=== PATIENT | female | born 1955 | race Hispanic/Latino ===

== ENCOUNTER 2016-12-01 08:58 | Emergency (ER) | payer MEDICAID ==
[2016-12-01 09:08] VITALS: BP 138/71; PULSE 87; TEMP 97; O2SAT 98
[2016-12-01 09:09] VITALS: BMI 36.3
[2016-12-01] MEDS ORDERED: Silver Sulfadiazine 1% CREAM (50 gm) ONE (09:22)
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
[2016-12-01] MEDS ORDERED: Silver Sulfadiazine 1% Cream (20 gm) TOP STA (09:25)
== END 2016-12-01 09:37 | disposition home or self-care (01) ==
LOC: H.ER 08:58
DX: T23.241A Burn of second degree of multiple right fingers (nail), including thumb, initial encounter (principal)

== ENCOUNTER 2017-03-10 06:59 | Day surgery (SDC) | payer MEDICAID ==
[2017-03-03 09:47] VITALS: BMI 36.1
[2017-03-10] MEDS ORDERED: Lactated Ringer's 1,000 ML IV ONE (07:55)
[2017-03-10] MEDS ORDERED: Povidone Iodine 5% Opht SOLUTION ONE (08:46)
[2017-03-10] MEDS ORDERED: Lidocaine 2% w Epi 1:100,000 Inj IJ ONE (08:47)
[2017-03-10] MEDS ORDERED: Midazolam 2 MG/2 ML VIAL ONE (10:56)
[2017-03-10] MEDS ORDERED: Tetracaine 0.5% Ophth 2 ML BOTTLE OU ONE (11:20)
[2017-03-10] MEDS ORDERED: Lidocaine/Epi 1% 1:100000 20 ML IJ ONE (11:25)
[2017-03-10] MEDS ORDERED: BSS 15 ML SOL IR ONE (11:26)
[2017-03-10 12:32] VITALS: RESP 18
[2017-03-10 13:05] VITALS: PULSE 82
[2017-03-10 13:17] VITALS: BP 139/80; TEMP 98; O2SAT 98
--- NOTE | 2017-03-18 07:06 | OP ---
DATE OF PROCEDURE: 03/10/2017 SURGEON: TONY CHILDERS MD ANESTHESIOLOGIST: ASHLEE MARIE MD ANESTHETIC: LOCAL / IV SEDATION PREOPERATIVE DIAGNOSIS: PTERYGIUM. RIGHT EYE POSTOPERATIVE DIAGNOSIS: PTERYGIUM. RIGHT EYE OPERATION: LAMELLAR KERATOSCLERECTOMY WITH CONJUNCTIVOPLASTY AND INTRAOPERATIVE APPLICATION OF MITOMYCIN-C. PREPARATION AND PROCEDURE: After the patient was sedated intravenously, patient was prepped and draped in the usual manner for sterile ophthalmic surgery. Through microsurgical control, an adult wire lid speculum was placed within the lids of the operative eye. Under magnification, 1% Xylocaine with Epinephrine was injected within the substance of the conjunctiva nasally in order to anesthetize and to balloon the nasal conjunctiva posterior to the head of the pterygium. Using a #15 Bard-Perry blade, the head of the pterygium was carefully dissected in a lamellar fashion down to the base of the scar tissue at the level of the corneal stroma. After this was reflected toward the limbus, sharp-tipped Cecily scissors were utilized inferiorly and superiorly at the surgical sulcus in order to continue to dissect the head and body of the pterygium away from the limbus. The superficial conjunctiva posterior to the pterygium was incised in a curvilinear fashion from the inferior to the superior aspect. The head and body of the pterygium were sharply and bluntly dissected and then excised in total. Hemostasis was obtained using a bipolar cautery. A fresh #15 Asoy-Mjqymf-Cdyuj was utilized to smooth out the corneal and scleral surface to allow proper epithelialization. At this time, Mitomycin- C applied on Weck-maribell sponge and then applied to the surgical sulcus and left in place for exactly two minutes. At the termination of the two minutes, the area was copiously irrigated with balanced salt solution. After the area was examined for hemostasis, which was found to be satisfactory, the conjunctiva was reanastomosed utilizing interrupted #8-0 Vicryl sutures. At the termination , the eye was irrigated and the conjunctiva was closed and a conjunctivoplasty was performed with interrupted #8-0 Vicryl suture. TobraDex drops were applied to the eye. POSTOPERATIVE CONDITION: The patient was brought to the post-anesthesia recovery with stable vital signs. TONY CHILDERS MD [facility]
== END 2017-03-10 13:38 | disposition home or self-care (01) ==
LOC: H.OPSURG 06:59
PROVIDERS: ATTEND Ophthalmology
DX: H11.002 Unspecified pterygium of left eye (principal)

== ENCOUNTER 2017-11-23 07:09 | Emergency (ER) | payer MEDICAID ==
[2017-11-23 07:10] VITALS: BMI 36.1
[2017-11-23 07:31] VITALS: RESP 20
[2017-11-23 07:45] VITALS: O2SAT 98
--- NOTE | 2017-11-23 07:45 | ED PDOC ---
History of Present Illness History of Present Illness: 62 year old female presents to the emergency department with a complaint of flu- like symptoms including productive cough with white phlegm, nasal congestion, runny nose, back pain and headache ongoing for 3 days. She also reported having a fever on first day of onset but it has since resolved. Denied any vomiting or diarrhea. Patient reported taking Ibuprofen last night for relief. PMD: none provided HPI: Influenza Time Seen by Provider: 11/23/17 07:14 Chief Complaint: Cough, Cold, Congestion Chief Complaint (Provider): Cough, Cold, Congestion History Per: Patient Exam Limitations: no limitations Onset/Duration Of Symptoms: Days (x3) Symptoms include: fever, headache, cough, nasal congestion Sick Contacts (Context): Family Member(s) (grandson) Past Medical History Reviewed: Historical Data, Nursing Documentation, Vital Signs Vital Signs: Last Vital Signs Temp 97.7 F 11/23/17 07:26 Pulse 90 11/23/17 07:26 Resp 20 11/23/17 07:26 BP 133/74 11/23/17 07:26 Pulse Ox 981 H 11/23/17 07:26 - Medical History PMH: No Chronic Diseases Denies: Chronic Kidney Disease - Surgical History Surgical History: Denies: Appendectomy, CABG, Carotid Endarterectomy, Cholecystectomy, Coronary Stent, Endoscopy, Pacemaker, Tonsillectomy Other surgeries: bunion; tubal ligation; breast reduction; cataract - Family History Family History: States: Unknown Family Hx - Social History Current smoker - smoking cessation education provided: No Ex-Smoker (has not smoked in the last 12 months): Yes (quit 40+ years ago) Alcohol: Occasional Drugs: Denies - Immunization History Hx Influenza Vaccination: Yes - Home Medications Home Medications: Ambulatory Orders Medication Instructions Recorded Silver Sulfadiazine 1% 50 gm 1 ea EXT DAILY #1 jar 12/01/16 [Silvadene 1% 50 gm] Albuterol HFA [Ventolin HFA 90 1 - 2 puff IH Q4H PRN #1 bottle 11/23/17 mcg/actuation (8 g)] - Allergies Allergies/Adverse Reactions: Allergies Allergy/AdvReac Type Severity Reaction Status Date / Time No Known Allergies Allergy Verified 10/17/16 09:25 Review of Systems ROS Statement: Except As Marked, All Systems Reviewed And Found Negative Constitutional: Positive for: Fever (resolved) ENT: Positive for: Nose Discharge, Nose Congestion Respiratory: Positive for: Cough, Sputum (white) Gastrointestinal: Negative for: Vomiting, Diarrhea Musculoskeletal: Positive for: Back Pain Neurological: Positive for: Headache Physical Exam - Reviewed Nursing Documentation Reviewed: Yes Vital Signs Reviewed: Yes - Physical Exam Appears: Positive for: Non-toxic, No Acute Distress Head Exam: Positive for: ATRAUMATIC, NORMAL INSPECTION, NORMOCEPHALIC Skin: Positive for: Normal Color Eye Exam: Positive for: Normal appearance ENT: Positive for: Normal ENT Inspection Neck: Positive for: Normal Cardiovascular/Chest: Positive for: Regular Rate, Rhythm, Chest Non Tender Respiratory: Positive for: Normal Breath Sounds. Negative for: Decreased Breath Sounds, Wheezing, Respiratory Distress Gastrointestinal/Abdominal: Positive for: Normal Exam, Soft. Negative for: Tenderness Extremity: Positive for: Normal ROM (upper/lower) Neurologic/Psych: Positive for: Alert (x3), Oriented Medical Decision Making Medical Decision Making: Initial Impression: Viral illness rule out flu and strep Initial Plan: * Albuterol 2.5mg INH * Influenza A B * Rapid strep * Peak flow pre/post tx * Throat culture ____ Time: 08 --Rapid strep: negative --Influenza: negative Time: 931 --Upon provider reevaluation, patient is feeling better, medically stable and requires no further treatment in the ED at this time. Provider discussed with patient the ineffectiveness of Tamiflu due to duration of symptoms and negative flu/strep tests. Patient expressed understanding and advised treatment with symptomatic care. Patient will be discharged home with Rx for Ventolin HFA. Counseling was provided and all questions were answered regarding diagnosis and need for follow up with PMD. There is agreement to discharge plan. Return if symptoms persist or worsen. Clinical Impression: Common cold Scribe Attestation: Documented by Evelyn Mcdaniels, acting as a scribe for Ignacio Willard MD. Provider Scribe Attestation: All medical record entries made by the Scribe were at my direction and personally dictated by me. I have reviewed the chart and agree that the record accurately reflects my personal performance of the history, physical exam, medical decision making, and the department course for this patient. I have also personally directed, reviewed, and agree with the discharge instructions and disposition. - ECG O2 Sat by Pulse Oximetry: 98 (RA) Pulse Ox Interpretation: Normal Disposition - Clinical Impression Clinical Impression: Common cold - Patient ED Disposition Is Patient to be Admitted: No Counseled Patient/Family Regarding: Studies Performed, Diagnosis, Need For Followup - Disposition Referrals: [facility] [Outside] [facility] [Outside] Disposition: Routine/Home Disposition Time: 09:20 Condition: IMPROVED Additional Instructions: follow up with your primary doctor in 2 days for reevaluation return to the ED with any worsening or concerning symptoms Prescriptions: Albuterol HFA [Ventolin HFA 90 mcg/actuation (8 g)] 1 - 2 puff IH Q4H PRN #1 bottle PRN Reason: Wheezing Instructions: Viral Upper Respiratory Infection, Adult (DC) Forms: [employer] (Hungarian)
[2017-11-23] MEDS ORDERED: Albuterol 0.083% Inhal Sol (2.5 mg/3 mL) UD INH ONE (07:48)
[2017-11-23 09:45] VITALS: BP 140/84; PULSE 84; TEMP 98.3
== END 2017-11-23 09:45 | disposition home or self-care (01) ==
LOC: H.ER 07:09
DX: J00 Acute nasopharyngitis [common cold] (principal)

== ENCOUNTER 2018-01-06 10:29 | Emergency (ER) | payer MEDICAID ==
[2018-01-06 10:40] VITALS: BMI 26.6
[2018-01-06 10:41] VITALS: RESP 17
[2018-01-06 10:51] VITALS: BP 103/58; PULSE 74; TEMP 98; O2SAT 96
--- NOTE | 2018-01-06 11:28 | ED PDOC ---
Lower Extremity Pain/Injury Time Seen by Provider: 01/06/18 11:27 Chief Complaint (Nursing): Lower Extremity Problem/Injury Chief Complaint (Provider): ankle injury History Per: Patient (62 y/o female here for evaluation of ankle injury that occurred last night. Notes she twisted while walking down stairs. Denies any head injury. Took motrin 800 mg yesterday. Able to ambulate but painful.) Past Medical History Reviewed: Historical Data, Nursing Documentation, Vital Signs Vital Signs: Last Vital Signs Temp 98 F 01/06/18 10:40 Pulse 74 01/06/18 10:40 Resp 17 01/06/18 10:40 BP 103/58 L 01/06/18 10:40 Pulse Ox 96 01/06/18 10:40 - Medical History PMH: Hyperlipidemia Denies: Chronic Kidney Disease - Surgical History Surgical History: Denies: Appendectomy, CABG, Carotid Endarterectomy, Cholecystectomy, Coronary Stent, Endoscopy, Pacemaker, Tonsillectomy - Family History Family History: States: Unknown Family Hx - Immunization History Hx Influenza Vaccination: Yes - Home Medications Home Medications: Ambulatory Orders Medication Instructions Recorded Silver Sulfadiazine 1% 50 gm 1 ea EXT DAILY #1 jar 12/01/16 [Silvadene 1% 50 gm] Albuterol HFA [Ventolin HFA 90 1 - 2 puff IH Q4H PRN #1 bottle 11/23/17 mcg/actuation (8 g)] Ibuprofen [Motrin] 600 mg PO Q8 PRN #21 tab 01/06/18 - Allergies Allergies/Adverse Reactions: Allergies Allergy/AdvReac Type Severity Reaction Status Date / Time No Known Allergies Allergy Verified 10/17/16 09:25 Review of Systems ROS Statement: Except As Marked, All Systems Reviewed And Found Negative Musculoskeletal: Positive for: Other (ankle injury) Physical Exam - Reviewed Nursing Documentation Reviewed: Yes Vital Signs Reviewed: Yes - Physical Exam Appears: Positive for: Well, Non-toxic, No Acute Distress Head Exam: Positive for: ATRAUMATIC, NORMAL INSPECTION, NORMOCEPHALIC Skin: Positive for: Normal Color, Warm, DRY Eye Exam: Positive for: EOMI, Normal appearance, PERRL ENT: Positive for: Normal ENT Inspection Neck: Positive for: Normal, Painless ROM Cardiovascular/Chest: Positive for: Regular Rate, Rhythm Respiratory: Positive for: CNT, Normal Breath Sounds Gastrointestinal/Abdominal: Positive for: Normal Exam, Soft Back: Positive for: Normal Inspection Extremity: Positive for: Normal ROM, Tenderness (lateral malleoulus), Swelling Neurologic/Psych: Positive for: Alert, Oriented - ECG O2 Sat by Pulse Oximetry: 96 - Progress ED Course And Treament: motrin 600mg Xry of ankle: no acute fx Placed in air cast and crutch instructions given. Disposition - Clinical Impression Clinical Impression: Ankle sprain - Patient ED Disposition Is Patient to be Admitted: No - Disposition Referrals: [facility] [Outside] Disposition: Routine/Home Disposition Time: 12:52 Condition: FAIR Prescriptions: Ibuprofen [Motrin] 600 mg PO Q8 PRN #21 tab PRN Reason: Pain, Moderate (4-7) Instructions: Sprain (DC), Ankle Sprain (DC) Forms: [facility] (Romanian), [facility] ED School/Work Excuse
--- NOTE | 2018-01-06 13:30 | RAD ---
PROCEDURE: Right Ankle Radiographs. HISTORY: Ankle injury COMPARISON: None FINDINGS: BONES: Bone alignment and mineralization are normal. There is no acute displaced fracture or bone destruction. JOINTS: Normal. No osteoarthritis. Ankle mortise maintained. Talar dome intact SOFT TISSUES: There is moderate lateral soft tissue swelling. OTHER FINDINGS: None. IMPRESSION: No acute fracture or dislocation. Moderate lateral soft tissue swelling.
== END 2018-01-06 13:16 | disposition home or self-care (01) ==
LOC: H.ER 10:29
DX: S93.401A Sprain of unspecified ligament of right ankle, initial encounter (principal); X50.9XXA Other and unspecified overexertion or strenuous movements or postures, initial encounter; Y92.89 Other specified places as the place of occurrence of the external cause; E78.5 Hyperlipidemia, unspecified

== ENCOUNTER 2018-12-21 18:50 | Emergency (ER) | payer MEDICAID ==
[2018-12-21 18:50] VITALS: BMI 26.6
[2018-12-21 19:45] VITALS: BP 132/74; PULSE 81; RESP 20; TEMP 98.2; O2SAT 99
[2018-12-21] MEDS ORDERED: cefTRIAXone (Rocephin) 250 mg Inj IM STA (19:54)
[2018-12-21] MEDS ORDERED: cefTRIAXone (Rocephin) 250 mg Inj ONE (20:03)
--- NOTE | 2018-12-21 20:27 | ED PDOC ---
HPI: Female Pain Time Seen by Provider: 12/21/18 19:47 Chief Complaint (Nursing): Female Genitourinary Chief Complaint (Provider): Frequency, Dysuria History Per: Patient History/Exam Limitations: no limitations Onset/Duration Of Symptoms: Days (x1) Current Symptoms Are (Timing): Still Present Additional Complaint(s): 63 year old female presents to the ED for evaluation of urinary frequency, dysuria, and blood when wiping one time for the past day. She notes she has had these symptoms before, so she would like to get it treated and checked out before it gets worse. Patient does note she is sexually active with no condom use, and would like to get checked and treated for STDs, however denies any abnormal vaginal discharge or odor, abdominal pain, nausea, and vomiting. She does have chronic back pain, but states it is not any worse than usual and denies new injury or trauma. Additionally, patient reports a rash to her chest for the past three days, but notes she has already been seen at the clinic for it and has an appointment with her PMD, so she is not concerned as it is being treated. Currently taking Benadryl to relieve the itchiness, but it makes her drowsy. Otherwise, denies any new exposures such as medications, detergents, perfumes, and foods. PMD: none provided Past Medical History Reviewed: Historical Data, Nursing Documentation, Vital Signs Vital Signs: Last Vital Signs Temp 98.2 F 12/21/18 19:43 Pulse 81 12/21/18 19:43 Resp 20 12/21/18 19:43 BP 132/74 12/21/18 19:43 Pulse Ox 99 12/21/18 19:43 - Medical History PMH: Hyperlipidemia Denies: Chronic Kidney Disease - Surgical History Surgical History: No Surg Hx Denies: Appendectomy, CABG, Carotid Endarterectomy, Cholecystectomy, Coronary Stent, Endoscopy, Pacemaker, Tonsillectomy - Family History Family History: States: Unknown Family Hx - Social History Current smoker - smoking cessation education provided: No Alcohol: Social Drugs: Denies - Immunization History Hx Influenza Vaccination: Yes - Home Medications Home Medications: Ambulatory Orders Medication Instructions Recorded Silver Sulfadiazine 1% 50 gm 1 ea EXT DAILY #1 jar 12/01/16 [Silvadene 1% 50 gm] Albuterol HFA [Ventolin HFA 90 1 - 2 puff IH Q4H PRN #1 bottle 11/23/17 mcg/actuation (8 g)] Ibuprofen [Motrin] 600 mg PO Q8 PRN #21 tab 01/06/18 Cephalexin [Keflex] 500 mg PO TID 7 Days #21 capsule 12/21/18 Phenazopyridine HCl [Pyridium] 200 mg PO TID #6 tablet 12/21/18 - Allergies Allergies/Adverse Reactions: Allergies Allergy/AdvReac Type Severity Reaction Status Date / Time No Known Allergies Allergy Verified 12/21/18 19:43 Review of Systems ROS Statement: Except As Marked, All Systems Reviewed And Found Negative Gastrointestinal: Negative for: Nausea, Vomiting, Abdominal Pain Genitourinary Female: Positive for: Dysuria, Frequency. Negative for: Vaginal Discharge (or odors) Musculoskeletal: Positive for: Back Pain (but chronic, not new) Skin: Positive for: Rash (to chest) Physical Exam - Reviewed Nursing Documentation Reviewed: Yes Vital Signs Reviewed: Yes - Physical Exam Comments: GENERAL APPEARANCE: Patient is awake, alert, oriented x 3, in no acute distress. Overweight. SKIN: Warm, dry; (+) diffusely erythematous rash to upper chest with blanching, (-) signs of infection, (-) vesicles. EYES: (-) conjunctival pallor, (-) scleral icterus. ENMT: Mucous membranes moist. Airway: patent. No lip or tongue swelling. NECK: (-) tenderness, (-) stiffness, (-) lymphadenopathy. CHEST AND RESPIRATORY: (-) rales, (-) rhonchi, (-) wheezes; breath sounds equal bilaterally. HEART AND CARDIOVASCULAR: (-) irregularity; (-) murmur, (-) gallop. ABDOMEN AND GI: (-) distention, (-) tenderness, (-) guarding, (-) rebound, (-) palpable masses, (-) CVA tenderness bilaterally. EXTREMITIES: (-) deformity, (-) edema, (+) distal pulses. NEURO AND PSYCH: Mental status as above; (-) focal findings. - ECG O2 Sat by Pulse Oximetry: 99 (RA) Pulse Ox Interpretation: Normal Medical Decision Making Medical Decision Making: Time: 1953 Initial Impression: urinary frequency, dysuria Initial Plan: --Rocephin 250mg IM --Zithromax 1000mg PO --Urine culture --Chlamydia/GC RNA, TMA --Urine culture --Urinalysis 2044 UA showing positive nitrates and UTI, will treat with Keflex and pyridium. Discussed results, diagnosis, treatment, return precautions and f/u with pt who is understanding, in agreement and stable for dc Scribe Attestation: Documented by Rocio Christie acting as a scribe for Delbert Barrett PA-C. Provider Scribe Attestation: All medical record entries made by the Scribe were at my direction and personally dictated by me. I have reviewed the chart and agree that the record accurately reflects my personal performance of the history, physical exam, medical decision making, and the department course for this patient. I have also personally directed, reviewed, and agree with the discharge instructions and disposition. Disposition - Clinical Impression Clinical Impression: Urinary tract infection - Patient ED Disposition Is Patient to be Admitted: No Counseled Patient/Family Regarding: Studies Performed, Diagnosis, Need For Followup, Rx Given - Disposition Referrals: your, doctor [Other] [facility] [place] [Outside] Disposition: Routine/Home Disposition Time: 21:00 Condition: STABLE Additional Instructions: Return to ED for new or worsening symptoms, fever >100.4, abdominal pain, new back pain, vomiting. Follow up with your doctor. Take medications as prescribed. Drink plenty of water Thank you for letting us take care of you today. You were treated for urinary tract infection. The emergency medical care you received today was directed at your acute symptoms. If you were prescribed any medication, please fill it and take as directed. It may take several days for your symptoms to resolve. Return to the Emergency Department if your symptoms worsen, do not improve, or if you have any other problems. Please contact your doctor in 2 days for re-evaluation and follow up / or call one of the physicians/clinics you have been referred to that are listed on the Patient Visit Information form that is included in your discharge packet. Bring any paperwork you were given at discharge with you along with any medications you are taking to your follow up visit. Our treatment cannot replace ongoing medical care by a primary care provider (PCP) outside of the emergency department. Prescriptions: Cephalexin [Keflex] 500 mg PO TID 7 Days #21 capsule Phenazopyridine HCl [Pyridium] 200 mg PO TID #6 tablet Instructions: Urinary Tract Infections in Adults Forms: [employer] (Surinamese) Print Language: ICELANDIC - POA Present On Arrival: None
[2018-12-21 20:31] LABS: SQUAMOUS EPITHIAL 2 /hpf (0-5); URINE BACTERIA OCC (<OCC); URINE BILIRUBIN NEGATIVE (NEGATIVE); URINE BLOOD MODERATE (NEGATIVE); URINE CLARITY CLOUDY (Clear); URINE COLOR YELLOW (YELLOW); URINE GLUCOSE (UA) NEG (NEGATIVE); URINE LEUKOCYTE ESTERASE LARGE Leu/uL (Negative); URINE PROTEIN 30 mg/dL (NEGATIVE)
== END 2018-12-21 21:12 | disposition home or self-care (01) ==
LOC: H.ER 18:50
DX: N39.0 Urinary tract infection, site not specified (principal); E78.5 Hyperlipidemia, unspecified; G89.29 Other chronic pain
CPT/HCPCS: 81003; 87086; 87181; 87491; 87591; 96372; 99283; J0696

== ENCOUNTER 2019-01-16 15:25 | Emergency (ER) | payer MEDICAID ==
[2019-01-16 15:25] VITALS: BMI 26.6
[2019-01-16] MEDS ORDERED: DiphenhydrAMINE 50 mg/ml Inj IVP STA (17:05)
--- NOTE | 2019-01-16 17:09 | ED PDOC ---
HPI: General Adult Time Seen by Provider: 01/16/19 16:09 Chief Complaint (Nursing): Dizziness/Lightheaded Chief Complaint (Provider): dizziness, rash History Per: Patient History/Exam Limitations: no limitations Additional Complaint(s): 63 y/o Female with hx of HL who presents for evaluation of dizziness and rash. Pt states that she had a rash last week and was prescribed an oral steroid with resolution of rash. This morning she noticed that the rash had returned on her neck and around her eyes. It is itchy. Denies using new medications, lotions, eating new foods today. She has not taken anything for it. This afternoon, she was sitting down at about 3pm when she suddenly had an episode of dizziness that lasted about 45 minutes and resolved by the time that she arrived. She denies having speech difficulty, visual blurriness, gait disturbance, palpitations, C/P or SOB at the time. States that dizziness persisted despite position (sitting, standing or walking). PMD: Dr. Spivey Past Medical History Reviewed: Historical Data, Nursing Documentation, Vital Signs Vital Signs: Last Vital Signs Temp 98.0 F 01/16/19 15:36 Pulse 80 01/16/19 15:36 Resp 16 01/16/19 15:36 BP 118/71 01/16/19 15:36 Pulse Ox 100 01/16/19 15:36 - Medical History PMH: Anemia, Hyperlipidemia Denies: Chronic Kidney Disease - Surgical History Surgical History: Denies: Appendectomy, CABG, Carotid Endarterectomy, Cholecystectomy, Coronary Stent, Endoscopy, Pacemaker, Tonsillectomy - Family History Family History: States: Unknown Family Hx - Immunization History Hx Influenza Vaccination: Yes - Home Medications Home Medications: Ambulatory Orders Medication Instructions Recorded Silver Sulfadiazine 1% 50 gm 1 ea EXT DAILY #1 jar 12/01/16 [Silvadene 1% 50 gm] Albuterol HFA [Ventolin HFA 90 1 - 2 puff IH Q4H PRN #1 bottle 11/23/17 mcg/actuation (8 g)] Ibuprofen [Motrin] 600 mg PO Q8 PRN #21 tab 01/06/18 Cephalexin [Keflex] 500 mg PO TID 7 Days #21 capsule 12/21/18 Phenazopyridine HCl [Pyridium] 200 mg PO TID #6 tablet 12/21/18 Aspirin [Adult Aspirin Regimen] 81 mg PO DAILY 7 Days tablet. 01/16/19 DiphenhydrAMINE [Benadryl] 25 mg PO Q6 PRN 5 Days cap 01/16/19 Famotidine [Pepcid] 20 mg PO BID 5 Days tab 01/16/19 Prednisone 50 mg PO DAILY #4 tablet 01/16/19 - Allergies Allergies/Adverse Reactions: Allergies Allergy/AdvReac Type Severity Reaction Status Date / Time No Known Allergies Allergy Verified 12/21/18 19:43 Review of Systems Constitutional: Negative for: Fever, Chills Cardiovascular: Negative for: Chest Pain, Palpitations Respiratory: Negative for: Shortness of Breath Neurological: Positive for: Dizziness. Negative for: Weakness, Numbness, Change in Speech, Confusion, Altered Mental Status, Headache Physical Exam - Reviewed Nursing Documentation Reviewed: Yes Vital Signs Reviewed: Yes - Physical Exam Appears: Positive for: Non-toxic, No Acute Distress Skin: Positive for: Rash (urticarial erythematous rash around neck and B/L eyes. ) Eye Exam: Positive for: EOMI, PERRL ENT: Positive for: Other (no pharyngeal swelling). Negative for: Pharyngeal Erythema Cardiovascular/Chest: Positive for: Regular Rate, Rhythm Respiratory: Positive for: Normal Breath Sounds Gastrointestinal/Abdominal: Positive for: Normal Exam Neurological/Psych: Positive for: Awake, Alert, Oriented, Gait (steady), Cerebellar Tests (able to perform heel to toe, alternating finger to nose, no pronator drift. ), superintendent operating II-XII (no tongue deviation, able to puff cheeks symmetrically, equal brow furrow). Negative for: Lethargic, Motor/Sensory Deficits (sensation to light touch intact in B/L upper and lower extremities, normal extinction), Facial Droop - Laboratory Results Result Diagrams: 01/16/19 16:28 01/16/19 16:28 - ECG O2 Sat by Pulse Oximetry: 100 Medical Decision Making Medical Decision Making: CBC, CMP EKG HEAD CT [facility] Tele Prednisone 50mg PO x 1 Benadryl 50mg IV x 1 Re-evaluation EKG: sinus with sinus arrhythmia, HR 74, no ischemic change. Orthostatics: lying BP: 120/77 HR 52; sitting 139/91 HR 66; standing: BP: 130/86 HR 66 Re-evaluated: resting comfortably. States that itching has improved. rash on neck had improved with only minimal erythema noted as well as improvement around eyes. Head CT: FINDINGS: HEMORRHAGE: No acute parenchymal, subarachnoid or extra-axial hemorrhage. BRAIN: Move minimal chronic periventricular white matter ischemic changes seen extending peripherally into the deep white matter both cerebral hemispheres. C hronic appearing infarct left frontal lobe new since prior exam.. VENTRICLES: No obstructive CALVARIUM: Calvarium intact PARANASAL SINUSES: Frontal sinuses remain underpneumatized/hypoplastic. No significant inflammatory changes. 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 MASTOID AIR CELLS: Unremarkable as visualized. No inflammatory changes. OTHER FINDINGS: Changes of bilateral cataract surgery noted. IMPRESSION: No acute intracranial hemorrhage. 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 Minor chronic periventricular white matter ischemic changes. Case reviewed with Dr. Spivey re: admission to [facility] for observation but states that patient could be evaluated as an outpatient. Prefers discussion with neurology. Case reviewed with Dr. Mendes of neurology who agrees that CT scan findings are likely unrelated to dizziness and that dizziness can be worked up as an outpatient. Patient feeling well and follow up as outpatient discussed. Patient in agreement with discharge with close follow up and strict return instructions given. Disposition - Clinical Impression Clinical Impression: Dizziness Counseled Patient/Family Regarding: Studies Performed, Diagnosis, Need For Followup, Rx Given - Disposition Referrals: Carroll Spivey MD [Staff Provider] - Valeri Mendes MD [Medical Doctor] - Disposition: Routine/Home Disposition Time: 21:00 Condition: IMPROVED Additional Instructions: Follow up with Dr. Mendes or neurologist within the next couple of days for further evaluation of dizziness and infarct noted on CAT scan. Follow up with Dr. Spivey or soccer commentator re: recurrent allergic rash. Take full course of Prednisone and Pepcid. Take Benadryl as needed. Return to ER if your symptoms return or worsen. Prescriptions: Aspirin [Adult Aspirin Regimen] 81 mg PO DAILY 7 Days tablet. DiphenhydrAMINE [Benadryl] 25 mg PO Q6 PRN 5 Days cap PRN Reason: Itching / Pruritus Famotidine [Pepcid] 20 mg PO BID 5 Days tab Prednisone 50 mg PO DAILY #4 tablet Instructions: Dizziness, Nonvertigo, (DC) Forms: [employer] (Slovak) Print Language: INDONESIAN
[2019-01-16] MEDS ORDERED: DiphenhydrAMINE 50 mg/ml Inj ONE (17:19)
[2019-01-16 17:27] LABS: BASO % 0.4 % (0.0-2.0); EOS # 0.2 K/uL (0.0-0.7); EOS % 3.7 % (0.0-4.0); HEMOGLOBIN 12.4 g/dL (12.0-16.0); LYMPH # 1.6 K/uL (1.0-4.3); LYMPH % 30.4 % (20.0-40.0); MEAN CELL VOLUME 91.9 fl (81.0-99.0); MEAN CORPUSCULAR HEMOGLOBIN 29.9 pg (27.0-31.0); MEAN CORPUSCULAR HGB CONC 32.5 g/dL (33.0-37.0); MEAN PLATELET VOLUME 9.3 fl (7.2-11.7); MONO # 0.3 K/uL (0.0-0.8); MONO % 6.1 % (0.0-10.0); NEUT # 3.2 K/uL (1.8-7.0); NEUT % 59.4 % (50.0-75.0); NRBC % 0.1 % (0.0-0.0); RBC 4.16 Mil/uL (3.80-5.20); RED CELL DISTRIBUTION WIDTH 15.5 % (11.5-14.5); WHITE BLOOD COUNT 5.4 K/uL (4.8-10.8)
[2019-01-16 17:38] LABS: ALB/GLOB RATIO 1.4 (1.0-2.1); ALBUMIN 4.3 g/dL (3.5-5.0); ALT/SGPT 26 U/L (9-52); AST/SGOT 30 U/L (14-36); BLOOD UREA NITROGEN 17 mg/dl (7-17); CALCIUM 9.8 mg/dL (8.4-10.2); GFR NON-AFRICAN AMERICAN > 60
--- NOTE | 2019-01-16 17:45 | CT ---
Date of service: 01/16/2019 PROCEDURE: CT HEAD WITHOUT CONTRAST. HISTORY: Dizziness COMPARISON: Comparison made with prior study dated 02/25/2014. TECHNIQUE: Axial computed tomography images were obtained through the head/brain without intravenous contrast. Radiation dose: Total exam DLP = 870.47 mGy-cm. This CT exam was performed using one or more of the following dose reduction techniques: Automated exposure control, adjustment of the mA and/or kV according to patient size, and/or use of iterative reconstruction technique. FINDINGS: HEMORRHAGE: No acute parenchymal, subarachnoid or extra-axial hemorrhage. BRAIN: Move minimal chronic periventricular white matter ischemic changes seen extending peripherally into the deep white matter both cerebral hemispheres. Chronic appearing infarct left frontal lobe new since prior exam.. VENTRICLES: No obstructive CALVARIUM: Calvarium intact PARANASAL SINUSES: Frontal sinuses remain underpneumatized/hypoplastic. No significant inflammatory changes. 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 MASTOID AIR CELLS: Unremarkable as visualized. No inflammatory changes. OTHER FINDINGS: Changes of bilateral cataract surgery noted. IMPRESSION: No acute intracranial hemorrhage. 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 Minor chronic periventricular white matter ischemic changes.
[2019-01-16 18:12] LABS: BARBITURATES, UR NEGATIVE (NEGATIVE); BENZODIAZEPINES, UR NEGATIVE (NEGATIVE); OPIATES, UR NEGATIVE (NEGATIVE); PHENCYCLIDINE, UR NEGATIVE (NEGATIVE)
[2019-01-16 21:36] VITALS: BP 129/76; PULSE 59; RESP 18; TEMP 98.6; O2SAT 98
--- NOTE | 2019-01-17 10:25 | CARD ---
APPROVED REPORT Date of service: 01/16/2019 EKG Measurement Heart [id number] <Conclusion> Sinus rhythm with marked sinus arrhythmia Otherwise normal ECG
== END 2019-01-16 21:19 | disposition home or self-care (01) ==
LOC: H.ER 15:25 → H.ERHOLD 20:13 → UNDOADMOB 20:13 → H.ER 21:19
DX: R42 Dizziness and giddiness (principal); R21 Rash and other nonspecific skin eruption; E78.5 Hyperlipidemia, unspecified; Z79.82 Long term (current) use of aspirin
CPT/HCPCS: 70450; 80053; 80324; 80345; 80346; 80349; 80353; 80358; 80361; 83992; 84484; 85025; 93005; 96374; 99284; J1200

== ENCOUNTER 2019-02-13 18:52 | Emergency (ER) | payer MEDICAID ==
[2019-02-13 19:05] VITALS: RESP 18; O2SAT 96
[2019-02-13 19:06] VITALS: BMI 37.2
--- NOTE | 2019-02-13 21:27 | ED PDOC ---
Lower Extremity Pain/Injury Time Seen by Provider: 02/13/19 19:13 Chief Complaint (Nursing): Lower Extremity Problem/Injury Chief Complaint (Provider): Lower Extremity Problem/Injury History Per: Patient History/Exam Limitations: no limitations Onset/Duration Of Symptoms: Days Current Symptoms Are (Timing): Still Present Additional Complaint(s): 63 y/o female with a PMHx of hyperlipidemia presents to the ED for evaluation of left leg pain for the past week. Patient reports having pain and swelling below the left knee one week ago and has since moved down the left calf. Patient notes she feels as if her leg is very heavy. Patient notes pain radiates to the back of the left thigh. Otherwise, patient denies fall, trauma, fever, chills and shortness of breath. Patient reports of taking diclofenac cream by her PMD with no relief of pain. Patient last took oral Ibuprofen four days ago. Patient additionally denies recent long distance travel, history of DVT, PE, clotting disorders, hormone replacement therapy and malignancy PMD: Nito Osuna Past Medical History Reviewed: Historical Data, Nursing Documentation, Vital Signs Vital Signs: Last Vital Signs Temp 98.5 F 02/13/19 19:04 Pulse 86 02/13/19 19:04 Resp 18 02/13/19 19:04 BP 125/81 02/13/19 19:04 Pulse Ox 96 02/13/19 19:04 Primary Care Provider: Nito Osuna - Medical History PMH: Anemia, Hypercholesterolemia, Hyperlipidemia Denies: Chronic Kidney Disease - Surgical History Surgical History: Denies: Appendectomy, CABG, Carotid Endarterectomy, Cholecystectomy, Coronary Stent, Endoscopy, Pacemaker, Tonsillectomy - Family History Family History: States: Unknown Family Hx - Immunization History Hx Influenza Vaccination: Yes - Home Medications Home Medications: Ambulatory Orders Medication Instructions Recorded Silver Sulfadiazine 1% 50 gm 1 ea EXT DAILY #1 jar 12/01/16 [Silvadene 1% 50 gm] Albuterol HFA [Ventolin HFA 90 1 - 2 puff IH Q4H PRN #1 bottle 11/23/17 mcg/actuation (8 g)] Ibuprofen [Motrin] 600 mg PO Q8 PRN #21 tab 01/06/18 Cephalexin [Keflex] 500 mg PO TID 7 Days #21 capsule 12/21/18 Phenazopyridine HCl [Pyridium] 200 mg PO TID #6 tablet 12/21/18 Aspirin [Adult Aspirin Regimen] 81 mg PO DAILY 7 Days tablet. 01/16/19 DiphenhydrAMINE [Benadryl] 25 mg PO Q6 PRN 5 Days cap 01/16/19 Famotidine [Pepcid] 20 mg PO BID 5 Days tab 01/16/19 Prednisone 50 mg PO DAILY #4 tablet 01/16/19 Ibuprofen [Motrin Tab] 600 mg PO Q6 PRN 7 Days tab 02/13/19 - Allergies Allergies/Adverse Reactions: Allergies Allergy/AdvReac Type Severity Reaction Status Date / Time No Known Allergies Allergy Verified 02/13/19 19:06 Review of Systems ROS Statement: Except As Marked, All Systems Reviewed And Found Negative Constitutional: Negative for: Fever, Chills Respiratory: Negative for: Shortness of Breath Musculoskeletal: Positive for: Leg Pain Physical Exam - Reviewed Nursing Documentation Reviewed: Yes Vital Signs Reviewed: Yes - Physical Exam Appears: Positive for: No Acute Distress Cardiovascular/Chest: Positive for: Regular Rate, Rhythm. Negative for: Murmur Respiratory: Positive for: Normal Breath Sounds. Negative for: Respiratory Distress Pulses-Dorsalis Pedis (L): 2+ Pulses-Dorsalis Pedis (R): 2+ Extremity: Positive for: Calf Tenderness (tenderness on palpation of the posterior calf), Capillary Refill (< 3), Other (No ecchymosis or erythema. (+) Kylah's sign). Negative for: Swelling (left knee swelling) - ECG O2 Sat by Pulse Oximetry: 96 (RA) Pulse Ox Interpretation: Normal Medical Decision Making Medical Decision Making: Time: 2035 Impression: Left Leg Pain Plan: -- Motrin 800 mg PO -- US Duplex Lower Extremity Vein Left 2345 Lower Extremity Venous US Findings: The common femoral, superficial femoral, popliteal, and other deep venous structures compress normally and demonstrate normal color Doppler flow. Normal venous waveforms with augmentation are seen. Impression: No evidence of deep vein thrombosis in the left femoral popliteal venous system. Scribe Attestation: Documented by Brown Sainz, acting as a scribe Arvind Hdz PA-C. Provider Scribe Attestation: All medical record entries made by the Scribe were at my direction and personally dictated by me. I have reviewed the chart and agree that the record accurately reflects my personal performance of the history, physical exam, medical decision making, and the department course for this patient. I have also personally directed, reviewed, and agree with the discharge instructions and disposition. U/S results discussed. Pt advised to elevate legs and use compression stockings for varicose veins. Pt stable for d/c home Disposition - Clinical Impression Clinical Impression: Leg pain, Varicose vein of leg - Patient ED Disposition Is Patient to be Admitted: No Counseled Patient/Family Regarding: Studies Performed, Diagnosis, Need For Followup - Disposition Referrals: Nito Osuna MD [Family Provider] - Disposition: Routine/Home Disposition Time: 23:55 Condition: STABLE Additional Instructions: Follow up with your primary care doctor for further evaluation. Elevate your legs after standing for long periods of time. Take Tylenol or Ibuprofen for pain. Use compression stockings to reduce swelling. Prescriptions: Ibuprofen [Motrin Tab] 600 mg PO Q6 PRN 7 Days tab PRN Reason: Pain, Moderate (4-7) Instructions: Varicose Veins (DC) Forms: [employer] (Cypriot) Print Language: IVORIAN
[2019-02-13 23:59] VITALS: BP 130/78; PULSE 71; TEMP 98
--- NOTE | 2019-02-14 16:35 | US ---
Date of service: 02/13/2019 PROCEDURE: LEFT LOWER EXTREMITY VENOUS ULTRASOUND HISTORY: swelling, pain in left calf COMPARISON: None available. TECHNIQUE: Standard and duplex Doppler ultrasonography of the left lower extremity major deep veins was performed including graded compression and augmentation. Longitudinal and transverse projections have been submitted for interpretation. FINDINGS: Good compressibility, augmentation and normal phasic blood flow and morphology are identified at the left common and superficial femoral as well as popliteal veins with the posterior tibial vein appearing patent as well. IMPRESSION: No sonographic evidence to suggest deep venous thrombosis left lower extremity as per above.
== END 2019-02-13 23:56 | disposition home or self-care (01) ==
LOC: H.ER 18:52
DX: I83.813 Varicose veins of bilateral lower extremities with pain (principal); E78.00 Pure hypercholesterolemia, unspecified